=== PATIENT | male | born 1950 | race Caucasian/White ===

== ENCOUNTER 2017-10-22 10:42 | Emergency (ER) | payer MEDICARE, OTHER ==
[~2017-10-22] VITALS: Ht 167.6 cm; Wt 83.5 kg
[~2017-10-22 10:42] MED LIST: ATORVASTATIN CA20 MG PO; LISINOPRIL10 MG PO; NORCO 7.5-3251 EACH PO; OMEPRAZOLE20 MG PO; PRAVASTATIN SOD10 MG PO; ULTRAM50 MG PO; VALIUM10 MG PO; ZYRTEC10 M3 PO
--- OUTSIDE RECORDS SUMMARY | 2017-10-22 10:45 | XMS REPORT | Clinical Summary ---
Author Author [facility] Address Unknown Phone Unavailable Care Team Providers Care Sports Management Intern Name Role Phone Lucio Damico DO PCP Allergies No Known Allergies Current Medications Prescription Sig. Disp. Refills Start End Date Status Date lisinopril Take 10 mg by mouth every Active (PRINIVIL,ZESTRIL) 10 mg morning. tablet pravastatin (PRAVACHOL) Take 20 mg by mouth every Active 20 MG tablet morning. esomeprazole (NexIUM) 20 Take 20 mg by mouth every Active MG capsule morning. diazePAM (VALIUM) 10 MG Take 10 mg by mouth as Active tablet needed for anxiety. fluticasone (FLONASE) 50 1 spray by Each Nare Active mcg/actuation nasal spray route as needed for rhinitis. traMADol (ULTRAM) 50 mg Take 50 mg by mouth every 10/31/19 Discontin tablet 6 (six) hours as needed 17 ued for moderate pain. acetaminophen-codeine Take 1-2 tabs PO Q6 30 tablet 0 10/19/1907/16 (TYLENOL WITH CODEINE #3) hours prn pain. 17 17 300-30 mg per tabletIndications: S/P trigger finger release Active Problems Problem Noted Date Trigger finger, left little finger 09/25/2016 Encounters Date Type Specialty Care Team Description 11/20/2016 Office Visit Orthopedic Surgery Baldemar Helton MD Trigger finger, left little finger (Primary Dx); Aftercare following surgery 10/30/2016 Office Visit Orthopedic Surgery Baldemar Helton MD Trigger finger, left little finger (Primary Dx); Aftercare following surgery after 10/21/2016 Family History Medical History Relation Name Comments Heart attack Mother Heart disease Mother Stroke Mother Relation Name Status Comments Father Mother Social History Tobacco Use Types Packs/Day Years Used Date Current Every Day Smoker Cigarettes 1 55 Smokeless Tobacco: Never Used Alcohol Use Drinks/Week oz/Week Comments Yes occasional Sex Assigned at Date Recorded Not on file Last Filed Vital Signs Not on file Plan of Treatment Health Maintenance Due Date Last Done Comments COLON CANCER SCREENING 2002 SHINGRIX VACCINE (#1) 2002 ZOSTER VACCINE 2012 PNEUMOCOCCAL 2017 POLYSACCHARIDE VACCINE AGE 65 AND OVER PNEUMOCOCCAL-13 2017 INFLUENZA VACCINE 12/25/2017 Results Not on fileafter 10/21/2016 Insurance Payer Benefit Subscriber ID Type Phone Address Plan / Group xxxxxxxxx [facility] Work: [address] [place] [facility] [place] [phone] Home:
--- OUTSIDE RECORDS SUMMARY | 2017-10-22 10:45 | XMS REPORT ---
Author Author [facility] Address Unknown Phone Unavailable Care Team Providers Care Security Auditor Name Role Phone PIPER ZURITA Unavailable Unavailable Problems This patient has no known problems. Allergies, Adverse Reactions, Alerts This patient has no known allergies or adverse reactions. Medications This patient has no known medications. Results Test Description Test Time Test Comments Text Results Atomic Results Result Comments CHEST [address] [address] Patient Name: JORGE LUIS MEJIA MR #: [id number] : 1950 Age/Sex: 66/M Req #: [id number] Adm Physician: Ordered by: PIPER ZURITA MD Report #: [id number] Location: OR Room/Bed: Procedure: [id number] DX/CHEST 2 VIEWS Exam Date: 03/27/17 Exam Time: 1050 REPORT STATUS: Signed PROCEDURE: Frontal and lateral views of the chest. COMPARISON: Chest radiograph 04/27/2015 INDICATIONS: PRE OPERATIVE CHEST X-RAY FOR C-SPINE SURGERY FINDINGS : Lines/tubes: None. Lungs: The lungs are well inflated and clear. There is no evidence of pneumonia or pulmonary edema. Pleura: There is no pleural effusion or pneumothorax. Heart and mediastinum: The heart and the mediastinum are normal. Bones: No acute bony abnormality. Partially visualized anterior lower cervical fusion hardware. IMPRESSION: No acute cardiopulmonary disease. Dictated by: Hernan Hampton M.D. on 03/27/2017 at 11:46 Electronically approved by: Hernan Hampton M.D. on 03/27/2017 at 11:46 Dictated By: HERNAN HAMPTON MD [id number] Transcribed By: AKASH on 03/27/17 1146 COPY TO: PIPER ZURITA MD
[2017-10-22 11:27] LABS: BASOPHILS % 0.2 % (0.0-1.0); EOSINOPHILS # (AUTO) 0.1 (0.0-0.4); EOSINOPHILS % 1.3 % (0.0-6.0); HEMOGLOBIN 16.5 g/dL (14.0-18.0); LYMPHOCYTES # (AUTO) 2.3 (1.0-3.2); LYMPHOCYTES % 26.4 % (18.0-39.1); MEAN CORPUSCULAR HEMOGLOBIN 30.6 pg (28-32); MEAN CORPUSCULAR HGB CONC 34.4 g/dL (31-35); MEAN CORPUSCULAR VOLUME 88.9 fL (81-99); MONOCYTES # (AUTO) 0.7 (0.2-0.8); MONOCYTES % 7.7 % (4.4-11.3); NEUTROPHILS # (AUTO) 5.5 (2.1-6.9); NEUTROPHILS % 64.1 % (38.7-80.0); PLATELET COUNT 240 x10e3/uL (140-360); RED CELL DISTRIBUTION WIDTH 13.2 % (11.7-14.4)
[2017-10-22 11:31] LABS: BILIRUBIN,URINE NEGATIVE (NEGATIVE); CLARITY,URINE CLEAR (CLEAR); COLOR,URINE YELLOW (YELLOW); KETONES,URINE NEGATIVE (NEGATIVE); LEUKOCYTE ESTERASE ,URINE NEGATIVE (NEGATIVE); NITRITE,URINE NEGATIVE (NEGATIVE); PROTEIN,URINE DIPSTICK NEGATIVE (NEGATIVE); URINE UROBILINOGEN 0.2 mg/dL (0.2 - 1)
[2017-10-22 11:50] LABS: ALANINE AMINOTRANSFERASE 29 IU/L (0-55); ALBUMIN 4.5 g/dL (3.5-5.0); ALBUMIN/GLOBULIN RATIO 1.4 (0.8-2.0); ALKALINE PHOSPHATASE 63 IU/L (40-150); ANION GAP 12.9 mmol/L (8-16); BLOOD UREA NITROGEN 13 mg/dL (7-26); BUN/CREATININE RATIO 11 (6-25); CARBON DIOXIDE 25 mmol/L (22-29); CHLORIDE 105 mmol/L (98-107); CREATININE, SERUM 1.16 mg/dL (0.72-1.25); EST GLOMERULAR FILTRATION RATE > 60 ML/MIN (60-); GLUCOSE 97 mg/dL (74-118); POTASSIUM 3.9 mmol/L (3.5-5.1); SODIUM 139 mmol/L (136-145)
[2017-10-22 12:01] LABS: WBC,URINE (MAN) 0-5 /HPF (0-5)
[2017-10-22 13:38] VITALS: BP 141/97
== END 2017-10-22 13:47 | disposition home or self-care (01) ==
LOC: ER 10:42
DX: N50.811 Right testicular pain (principal); R10.30 Lower abdominal pain, unspecified; S39.011A Strain of muscle, fascia and tendon of abdomen, initial encounter; Z98.1 Arthrodesis status; F17.210 Nicotine dependence, cigarettes, uncomplicated
CPT/HCPCS: 36415; 80053; 81001; 84152; 85025; 99284

== ENCOUNTER → 2018-04-10 | Day surgery (SDC) | payer MEDICARE, OTHER ==
[2018-04-08 12:21] LABS: BASOPHILS % 0.5 % (0.0-1.0); EOSINOPHILS # (AUTO) 0.2 (0.0-0.4); EOSINOPHILS % 2.7 % (0.0-6.0); HEMATOCRIT 49.1 % (38.2-49.6); HEMOGLOBIN 16.6 g/dL (14.0-18.0); LYMPHOCYTES # (AUTO) 2.6 (1.0-3.2); LYMPHOCYTES % 34.8 % (18.0-39.1); MEAN CORPUSCULAR HEMOGLOBIN 30.7 pg (28-32); MEAN CORPUSCULAR HGB CONC 33.8 g/dL (31-35); MEAN CORPUSCULAR VOLUME 90.9 fL (81-99); MONOCYTES # (AUTO) 0.8 (0.2-0.8); MONOCYTES % 10.3 % (4.4-11.3); NEUTROPHILS # (AUTO) 3.9 (2.1-6.9); NEUTROPHILS % 51.4 % (38.7-80.0); PLATELET COUNT 261 x10e3/uL (140-360); RED CELL DISTRIBUTION WIDTH 12.8 % (11.7-14.4)
[~2018-04-10] MED LIST changes: +DEXAMETHASONE SOD PHOS 10 MG/1 ML VIAL ONE; +IOPAMIDOL 200 MG/ML 20 ML VIAL IT ONE; +LIDOCAINE HCL 1% 30ML-PF VIAL ONE; +LIDOCAINE HCL 2% LOCAL INJ 5 ML SDV VIAL INJ ONE; +PRINIVIL10 MG PO; +PROPOFOL IV EMULSION 10 MG/ML 20 ML VIAL ONE
--- OUTSIDE RECORDS SUMMARY | 2018-04-10 05:31 | XMS REPORT | Clinical Summary ---
Author Author [facility] Address Unknown Phone Unavailable Care Team Providers Care Funds Development Director Name Role Phone Fred Damico DO PCP Allergies No Known Allergies Medications End Date Status Medication Sig Dispensed Refills Start Date Active lisinopril Take 10 mg by 0 (PRINIVIL,ZESTRIL) 10 mg mouth every tablet morning. Active pravastatin (PRAVACHOL) Take 20 mg by 0 20 MG tablet mouth every morning. Active esomeprazole (NexIUM) 20 Take 20 mg by 0 MG capsule mouth every morning. Active diazePAM (VALIUM) 10 MG Take 10 mg by 0 tablet mouth as needed for anxiety. Active fluticasone (FLONASE) 50 1 spray by 0 mcg/actuation nasal spray Each Nare route as needed for rhinitis. Active Problems Problem Noted Date Trigger finger, left little finger 09/25/2016 Family History Medical History Relation Name Comments Heart attack Mother Heart disease Mother Stroke Mother Relation Name Status Comments Father Mother Social History Date Tobacco Use Types Packs/Day Years Used Current Every Day Smoker Cigarettes 1 55 Smokeless Tobacco: Never Used Alcohol Use Drinks/Week oz/Week Comments Yes occasional Sex Assigned at Date Recorded Not on file Industry Job Start Date Occupation Not on file Not on file Not on file Travel End Travel History Travel Start No recent travel history available. Last Filed Vital Signs Not on file Plan of Treatment Health Maintenance Due Date Last Done Comments COLON CANCER SCREENING 2002 SHINGRIX VACCINE (1 of 2) 2002 ZOSTER VACCINE 2012 PNEUMOCOCCAL 2017 POLYSACCHARIDE VACCINE AGE 65 AND OVER PNEUMOCOCCAL-13 2017 INFLUENZA VACCINE 12/25/2017 Results Not on fileafter 04/09/2017 Insurance Payer Benefit Subscriber ID Type Phone Address Plan / Group TARAN CHIRINOS xxxxxxxxx [facility] Advance Directives Patient has advance care planning documents on file. For more information, van wang contact: Jignesh Cristobal [address] [place] [address]
[2018-04-10 10:50] VITALS: BP 120/72
== END | disposition home or self-care (01) ==
LOC: OR 05:28
PROVIDERS: ATTEND Physical Medicine & Rehabilitation Pain Medicine
DX: M47.26 Other spondylosis with radiculopathy, lumbar region (principal); R93.7 Abnormal findings on diagnostic imaging of other parts of musculoskeletal system; Z98.1 Arthrodesis status; I10 Essential (primary) hypertension; K21.9 Gastro-esophageal reflux disease without esophagitis; F41.9 Anxiety disorder, unspecified; F32.9 Major depressive disorder, single episode, unspecified; Z72.0 Tobacco use; Z01.810 Encounter for preprocedural cardiovascular examination; Z01.812 Encounter for preprocedural laboratory examination
CPT/HCPCS: 36415; 64483; 64484; 85025; 93005; J1100; J2001 ×2; J2704; Q9967; 77003

== ENCOUNTER 2018-04-15 09:40 | Emergency (ER) | payer MEDICARE, OTHER ==
[~2018-04-15] VITALS: Ht 167.6 cm; Wt 81.6 kg
[~2018-04-15 09:40] MED LIST changes: -DEXAMETHASONE SOD PHOS 10 MG/1 ML VIAL ONE; -IOPAMIDOL 200 MG/ML 20 ML VIAL IT ONE; -LIDOCAINE HCL 1% 30ML-PF VIAL ONE; -LIDOCAINE HCL 2% LOCAL INJ 5 ML SDV VIAL INJ ONE; -PROPOFOL IV EMULSION 10 MG/ML 20 ML VIAL ONE
--- OUTSIDE RECORDS SUMMARY | 2018-04-15 09:45 | XMS REPORT | Clinical Summary ---
Author Author [facility] Address Unknown Phone Unavailable Care Team Providers Care Sketch Liner Name Role Phone Fred Damico DO PCP [...] INFLUENZA VACCINE 12/25/2017 Results Not on fileafter 04/14/2017 Insurance Payer Benefit Subscriber ID Type Phone Address Plan / Group TARAN CHIRINOS xxxxxxxxx [facility] Advance Directives Patient has advance care planning documents on file. For more information, van wang contact: Jignesh Cristobal [address] [place] [address]
[2018-04-15] MEDS ORDERED: MECLIZINE HCL 12.5 MG TAB PO ONE (10:00)
[2018-04-15 10:19] LABS: BASOPHILS % 0.3 % (0.0-1.0); EOSINOPHILS # (AUTO) 0.2 (0.0-0.4); HEMATOCRIT 46.2 % (38.2-49.6); HEMOGLOBIN 15.9 g/dL (14.0-18.0); LYMPHOCYTES % 21.6 % (18.0-39.1); MEAN CORPUSCULAR HGB CONC 34.4 g/dL (31-35); MEAN CORPUSCULAR VOLUME 90.1 fL (81-99); MONOCYTES # (AUTO) 0.5 (0.2-0.8); MONOCYTES % 5.9 % (4.4-11.3); NEUTROPHILS # (AUTO) 6.3 (2.1-6.9); NEUTROPHILS % 69.6 % (38.7-80.0); PLATELET COUNT 242 x10e3/uL (140-360); RED BLOOD COUNT 5.13 x10e6/uL (4.3-5.7); RED CELL DISTRIBUTION WIDTH 12.6 % (11.7-14.4)
[2018-04-15 10:43] LABS: ALANINE AMINOTRANSFERASE 16 IU/L (0-55); ALBUMIN 3.6 g/dL (3.5-5.0); ALKALINE PHOSPHATASE 74 IU/L (40-150); ANION GAP 11.9 mmol/L (8-16); BLOOD UREA NITROGEN 18 mg/dL (7-26); BUN/CREATININE RATIO 16 (6-25); CALCIUM 9.8 mg/dL (8.4-10.2); CARBON DIOXIDE 25 mmol/L (22-29); CHLORIDE 101 mmol/L (98-107); CHOL/HDL RATIO 3.5 (3.9-4.7); CHOLESTEROL 132 MD/DL (0-199); CREATININE, SERUM 1.13 mg/dL (0.72-1.25); EST GLOMERULAR FILTRATION RATE > 60 ML/MIN (60-); GLUCOSE 139 mg/dL (74-118); HDL CHOLESTEROL 38 MG/DL (40-60); LDL CHOLESTEROL 67 MG/DL (60-130); PHOSPHORUS 2.3 MG/DL (2.3-4.7); POTASSIUM 3.9 mmol/L (3.5-5.1); SODIUM 134 mmol/L (136-145); TRIGLYCERIDES 137 MG/DL (0-149)
[2018-04-15] MEDS ORDERED: ONDANSETRON HCL INJ 2 MG/ML VIAL ONE (11:06)
[2018-04-15] MEDS ORDERED: ONDANSETRON HCL INJ 2 MG/ML VIAL IV ONE (11:30)
[2018-04-15] MEDS ORDERED: DIAZEPAM 5 MG TAB PO ONE (12:00)
[2018-04-15] MEDS ORDERED: SCOPOLAMINE 1.5 MG PATCH TOP ONE (12:00)
[2018-04-15] MEDS ORDERED: DIAZEPAM 2 MG TAB PO ONE (12:00)
--- NOTE | 2018-04-15 12:23 | Diagnostic Imaging Report ---
Exam: Head CT without contrast History: Nausea, dizziness, vertigo Comparison studies: None Technique: Axial images were obtained from the skull base to the vertex. Coronal and sagittal images reconstructed from the axial data. Dose modulation, iterative reconstruction, and/or weight based adjustment of the mA/kV was utilized to reduce the radiation dose to as low as reasonably achievable. Radiation dose: Total DLP: 1036 mGy*cm. Estimated effective dose: DLP x 0.015 Intravenous contrast: None Findings: Scalp: No abnormalities. Bones: No fractures, blastic or lytic lesions. Brain sulci: Appropriate for age. Ventricles: Normal in size and configuration. No hydrocephalus. Extra-axial spaces: No masses, no fluid collection. Parenchyma: No masses, acute hemorrhage, acute or chronic vascular insults. A few scattered hypodensities in the supratentorial white matter are nonspecific but most compatible with chronic microvascular ischemic changes. Sellar/suprasellar region: No abnormalities. Craniocervical junction: Patent foramen magnum. No Chiari one malformation. Included middle ear and mastoid cavities: Clear. Incidental findings: Atherosclerotic calcifications in the carotid siphons. IMPRESSION: 1. No acute intracranial abnormalities. 2. Mild chronic microvascular ischemic changes. Signed by: Dr. Monico Pulido M.D. on 04/15/2018 12:20 PM
[2018-04-15 13:08] VITALS: BP 128/75
== END 2018-04-15 13:22 | disposition home or self-care (01) ==
LOC: ER 09:40
DX: R51 Headache (principal); R53.1 Weakness; R42 Dizziness and giddiness; H81.10 Benign paroxysmal vertigo, unspecified ear; I10 Essential (primary) hypertension
CPT/HCPCS: 36415; 70450; 80053; 80061; 83735; 84100; 84484; 85025; 93005; 99284; J2405

== ENCOUNTER 2018-04-24 14:00 | Outpatient (RCR) | payer MEDICARE, OTHER | END 2018-04-25 | LOC: PT 14:00 | PROVIDERS: ATTEND Neurological Surgery | DX: M48.062 Spinal stenosis, lumbar region with neurogenic claudication (principal); M53.86 Other specified dorsopathies, lumbar region; M79.604 Pain in right leg; M62.81 Muscle weakness (generalized); R26.2 Difficulty in walking, not elsewhere classified | CPT/HCPCS: 97110 ×3; 97162; G8978; G8979 ==

== ENCOUNTER → 2018-05-15 | Day surgery (SDC) | payer MEDICARE, OTHER ==
[~2018-05-15] MED LIST changes: +DEXAMETHASONE SOD PHOS 10 MG/1 ML VIAL ONE; +FENTANYL CITRATE/PF 100MCG/2 ML INJ ONE; +IOPAMIDOL 200 MG/ML 20 ML VIAL IT ONE; +LIDOCAINE HCL 1% 30ML-PF VIAL ONE; +MIDAZOLAM HCL 2 MG/2 ML VIAL ONE; +PROPOFOL IV EMULSION 10 MG/ML 20 ML VIAL ONE
--- OUTSIDE RECORDS SUMMARY | 2018-05-15 06:22 | XMS REPORT | Clinical Summary ---
Author Author [facility] Organization [facility] Address Unknown Phone Unavailable Care Team Providers Care Mobile Service Rv Technician Name Role Phone Fred Damico DO PCP [...] Last Done Comments COLON CANCER SCREENING 2002 SHINGLES VACCINES (1 of 2002 2) PNEUMOCOCCAL 2017 POLYSACCHARIDE VACCINE AGE 65 AND OVER PNEUMOCOCCAL-13 2017 INFLUENZA VACCINE 12/25/2017 Results Not on fileafter 05/14/2017 Insurance Payer Benefit Subscriber ID Type Phone Address Plan / Group TARAN CHIRINOS xxxxxxxxx [facility] Advance Directives Patient has advance care planning documents on file. For more information, van wang contact: Jignesh Cristobal [address] [place] [address]
[2018-05-15 08:35] VITALS: BP 114/72
== END | disposition home or self-care (01) ==
LOC: OR 06:20
PROVIDERS: ATTEND Physical Medicine & Rehabilitation Pain Medicine
DX: M47.26 Other spondylosis with radiculopathy, lumbar region (principal); Z98.1 Arthrodesis status; I10 Essential (primary) hypertension; E78.5 Hyperlipidemia, unspecified; K21.9 Gastro-esophageal reflux disease without esophagitis; F32.9 Major depressive disorder, single episode, unspecified; F41.9 Anxiety disorder, unspecified; F17.210 Nicotine dependence, cigarettes, uncomplicated
CPT/HCPCS: 64483; 64484 ×2; J1100; J2001; J2250; J2704; Q9967; 77003

== ENCOUNTER → 2019-07-06 | Outpatient (CLI) | payer MEDICARE, OTHER ==
[~2019-07-06] MED LIST changes: -DEXAMETHASONE SOD PHOS 10 MG/1 ML VIAL ONE; -FENTANYL CITRATE/PF 100MCG/2 ML INJ ONE; -IOPAMIDOL 200 MG/ML 20 ML VIAL IT ONE; -LIDOCAINE HCL 1% 30ML-PF VIAL ONE; -MIDAZOLAM HCL 2 MG/2 ML VIAL ONE; -PROPOFOL IV EMULSION 10 MG/ML 20 ML VIAL ONE
--- NOTE | 2019-07-06 18:46 | Diagnostic Imaging Report ---
Hepatobiliary Scan with Gallbladder Ejection Fraction Clinical information: Cholelithiasis Report: Following intravenous administration of 5.0 millicuries of Tc-99m mebrofenin, dynamic images of the abdomen in the anterior projection were obtained through 21 minutes. Sincalide (CCK analog) 1.7 micrograms was administered intravenously over 30 minutes with additional imaging for determination of gallbladder ejection fraction. Perfusion to the liver is normal. Extraction of tracer from the blood pool by the liver parenchyma is normal. Tracer is seen promptly within the biliary tract. The gallbladder begins to fill by 18 minutes post-injection of tracer and fills adequately. Tracer is seen in the small bowel by 12 minutes. The gallbladder ejection fraction with administration of sincalide is 93% (normal greater than 40%). Impression: 1. Filling of the gallbladder excludes the diagnosis of acute cystic duct obstruction/acute cholecystitis. 2. Normal gallbladder ejection fraction of 93% does not support the clinical diagnosis of chronic cholecystitis/gallbladder dyskinesia. Signed by: Dr. Adry Ortiz M.D. on 07/06/2019 6:43 PM
== END ==
LOC: NM 10:49
PROVIDERS: ATTEND Internal Medicine Gastroenterology
DX: K80.20 Calculus of gallbladder without cholecystitis without obstruction (principal)
CPT/HCPCS: 78227; A9537

== ENCOUNTER 2021-01-01 18:28 | Emergency (ER) | payer MEDICARE, OTHER ==
[~2021-01-01] VITALS: Ht 167.6 cm; Wt 81.6 kg
== END 2021-01-01 19:37 | disposition home or self-care (01) ==
LOC: ER 19:19
DX: S80.862A Insect bite (nonvenomous), left lower leg, initial encounter (principal); I10 Essential (primary) hypertension; E78.5 Hyperlipidemia, unspecified; K21.9 Gastro-esophageal reflux disease without esophagitis
CPT/HCPCS: 99282

== ENCOUNTER → 2022-03-07 | Outpatient (CLI) | payer MEDICARE, OTHER | LOC: CT 13:46 | PROVIDERS: ATTEND Student in an Organized Health Care Education/Training Program | DX: J44.9 Chronic obstructive pulmonary disease, unspecified (principal); F17.210 Nicotine dependence, cigarettes, uncomplicated | CPT/HCPCS: 71250; 76770 ==

== ENCOUNTER → 2023-12-20 | Outpatient (REF) | payer MEDICARE, OTHER | LOC: CT 12:26 | PROVIDERS: ATTEND Student in an Organized Health Care Education/Training Program | DX: F17.210 Nicotine dependence, cigarettes, uncomplicated (principal) | CPT/HCPCS: 71250 ==